=== PATIENT | female | born 1930 ===

== ENCOUNTER 2017-09-17 10:56 | Outpatient (CLI) | END 2017-09-17 10:57 | disposition home or self-care (01) | LOC: NONPT 10:56 | PROVIDERS: ATTEND Family Medicine | DX: J18.9 Pneumonia, unspecified organism (principal); M62.81 Muscle weakness (generalized); E11.9 Type 2 diabetes mellitus without complications; I10 Essential (primary) hypertension | CPT/HCPCS: 80053; 80061; 83036; 85027 ==